=== PATIENT | male | born 1965 | race American Indian/Alaskan Native ===

== ENCOUNTER 2023-07-05 12:44 | Emergency (ER) | payer MEDICAID ==
[~2023-07-05] VITALS: Ht 172.7 cm; Wt 84.4 kg
[2023-07-05 13:20] LABS: HEMATOCRIT 38.4 % (35.0-50.0); HEMOGLOBIN 11.6 g/dL (12.0-18.0); MCH 28.5 (27-36); MCHC 30.3 g/dl (30-36); PLATELET COUNT 144 K/uL (140-440); RBC 4.09 M/ul (4.3-5.7)
[2023-07-05 13:25] LABS: PARTIAL THROMBOPLASTIN TIME 33.1 Sec (22.9-41.3)
[2023-07-05 13:26] LABS: INR 1.81 (0.80-1.30); PROTIME 20.2 Sec (11.2-14.2)
[2023-07-05] MEDS ORDERED: ELIQUIS5 MG PO (13:31)
[2023-07-05] MEDS ORDERED: BAYER CHEWABLE81 MG PO (13:31)
[2023-07-05] MEDS ORDERED: COZAAR25 MG PO (13:31)
[2023-07-05 13:32] LABS: ALBUMIN 3.4 g/dL (3.4-5.0); ALBUMIN/GLOBULIN RATIO 0.85 (1.1-2.4); ANION GAP 22.3 (7-21); BILIRUBIN, TOTAL 0.7 ng/dL (0.2-1.0); BUN/CREATININE RATIO 13.54 (6.0-28.6); CALCIUM 8.8 mg/dL (8.5-10.1); CREATININE, SERUM 1.92 mg/dL (0.70-1.30); POTASSIUM 4.3 mmol/L (3.5-5.1); PROTEIN, TOTAL 7.4 g/dL (6.4-8.2)
[2023-07-05] MEDS ORDERED: LIPITOR40 MG PO (13:32)
[2023-07-05] MEDS ORDERED: COREG6.25 MG PO (13:33)
[2023-07-05] MEDS ORDERED: LASIX40 MG PO (13:33)
[2023-07-05] MEDS ORDERED: METFORMIN HCL500 M1 PO (13:33)
[2023-07-05] MEDS ORDERED: GLIPIZIDE XL5 MG PO (13:34)
[2023-07-05] MEDS ORDERED: FEOSOL325 MG PO (13:35)
[2023-07-05] MEDS ORDERED: VITAMIN C500 M1 PO (13:35)
[2023-07-05 13:38] LABS: BANDS, MANUAL DIFF 1; BASOPHILS, MANUAL DIFF 1; LYMPHOCYTES, MANUAL DIFF 46; MONOCYTES, MANUAL DIFF 3; NEUTROPHILS, MANUAL DIFF 49
[2023-07-05 14:00] LABS: INFLUENZA B NAA NEGATIVE (NEGATIVE); RESPIRATORY SYNCYTIAL VIR NAA NEGATIVE (NEGATIVE)
[2023-07-05 14:36] LABS: PH, VENOUS 7.19 (7.31-7.41)
[2023-07-05 16:14] LABS: BILIRUBIN, URINE NEGATIVE (negative); BLOOD/HGB, URINE SMALL (Negative); KETONE, URINE NEGATIVE (Negative); LEUK ESTERASE, URINE NEGATIVE (negative); NITRITE, URINE NEGATIVE (negative)
[2023-07-05 16:22] LABS: AMPHETAMINES, UR NEGATIVE (NEGATIVE); BARBITURATES, UR NEGATIVE (NEGATIVE); BENZODIAZEPINES, UR NEGATIVE (NEGATIVE); BUPRENORPHINE,UR NEGATIVE (NEGATIVE); COCAINE, UR NEGATIVE (NEGATIVE); MARIJUANA (THC), UR NEGATIVE (NEGATIVE); MDMA, UR NEGATIVE (NEGATIVE); METHADONE, UR NEGATIVE (NEGATIVE); METHAMPHETAMINE, UR NEGATIVE (NEGATIVE); OPIATES, UR NEGATIVE (NEGATIVE); OXYCODONE, UR NEGATIVE (NEGATIVE); PHENCYCLIDINE, UR NEGATIVE (NEGATIVE); TRICYCLIC ANTIDEPRESSANT, UR NEGATIVE (NEGATIVE)
[2023-07-05 16:24] LABS: BACTERIA, URINE 2+ /hpf (negative); CASTS, URINE NONE SEEN \\lpf; CRYSTALS, URINE NONE SEEN (0-1+); EPITHELIAL CELLS, URINE SQUAMOUS 1+ /lpf (0-1+); RED BLOOD CELLS, URINE 0-1 /hpf (0-5)
[2023-07-05 16:25] LABS: COLLECTION TYPE, URINE CLEAN CATCH; REFLEX CULTURE, URINE Yes (No)
[2023-07-05 17:00] VITALS: BP 170/88
--- NOTE | 2023-07-06 08:01 | OR ---
[facility] [address], [place] [address] Signed DATE OF OPERATION: 07/05/2023 SURGEON: Vanessa Alfaro MD PREOPERATIVE DIAGNOSIS: Cardiac arrest. POSTOPERATIVE DIAGNOSIS: Cardiac arrest. PROCEDURE: Placement left femoral triple-lumen catheter. ESTIMATED BLOOD LOSS: None. INDICATIONS: Kamron is a 57-year-old gentleman, who has undergone previous open-heart surgery. He came to the hospital in cardiac arrest. I have been asked by the ER physician to come help place a triple-lumen catheter for ongoing pressor support and lab draws and so forth. He is already intubated and sedated on propofol. His family was here and we had briefly talked to them about placement of the triple-lumen catheter. He has multiple wires, ET tube, paddles across the chest and so forth. We felt the easiest place to access him currently would be his left femoral vein. His Curtis catheter is actually tied to his leg on the right thigh at this time. The family had expressed understanding and wished to proceed. DESCRIPTION OF PROCEDURE: Kamron was kept supine here in his ER bed. Both groins were prepped and draped in the usual sterile fashion. We injected some local anesthetic there just medial to his palpable left femoral pulse. We accessed the femoral vein on the 3rd pass of the needle with nonpulsatile dark blood. The wire was able to feed without any resistance whatsoever. The tract dilated in the correct direction without resistance. A triple-lumen catheter was inserted without resistance up to the hub. All three ports were able to draw and flush quite nicely with injectable saline. Triple-lumen catheter was held in place with interrupted silk sutures. Sterile dressing was applied by the nursing staff. Kamron tolerated the procedure well given his propofol infusion. Electronically Signed By: VANESSA ALFARO MD 07/06/23 0801 PATIENT NAME: KAMRON HUSTON OPERATIVE REPORT DATE OF : 61 REPORT #: [id number] PHYSICIAN: VANESSA ALFARO MD PCP: OTHER PCP REPORT IS CONFIDENTIAL AND NOT TO BE RELEASED WITHOUT AUTHORIZATION [address] [address] Signed MD ARIC Garcia/SEGUNDOL /[id number] cc: Vanessa Alfaro MD Copies: VANESSA ALFARO MD ~ Electronically Signed By: VANESSA ALFARO MD 07/06/23 0801 PATIENT NAME: KAMRON HUSTON OPERATIVE REPORT DATE OF : 61 REPORT #: [id number] PHYSICIAN: VANESSA ALFARO MD PCP: OTHER PCP REPORT IS CONFIDENTIAL AND NOT TO BE RELEASED WITHOUT AUTHORIZATION
--- NOTE | 2023-07-06 17:09 | EKG ---
[facility] [address] [facility] [place] [address] Signed Poor data quality, interpretation may be adversely affected Atrial fibrillation with premature ventricular or aberrantly conducted complexes Right bundle branch block , plus right ventricular hypertrophy Abnormal ECG No previous ECGs available Confirmed by DEVORAH PIZANO MD ([id number]) on 07/06/2023 5:09:29 PM Electronically Signed By: DEVORAH PIZANO 07/06/23 1709 PATIENT NAME: ROBELLEATHA UCHE Electrocardiogram DATE OF : 61 PHYSICIAN: DEVORAH PIZANO REPORT #: [id number] REPORT IS CONFIDENTIAL AND NOT TO BE RELEASED WITHOUT AUTHORIZATION
== END 2023-07-05 17:00 | disposition short-term general hospital (02) ==
LOC: ED 12:44
PROVIDERS: Emergency Medicine
DX: I46.9 Cardiac arrest, cause unspecified (principal); I95.9 Hypotension, unspecified; R00.0 Tachycardia, unspecified; Z79.01 Long term (current) use of anticoagulants; Z79.899 Other long term (current) drug therapy; Z20.822 Contact with and (suspected) exposure to COVID-19
CPT/HCPCS: 36415; 51702; 70450; 71045; 80053; 81001; 82803; 84484; 85025; 85610; 85730; 87088; 87502; 93005; 93010; 99285-25; C9803; J0171; J0282; J0461; J1265; J2060; J2704; J7030; U0002